=== PATIENT | male | born 1965 | race Caucasian/White ===

== ENCOUNTER 2019-05-11 11:12 | Outpatient (CLI) | payer BC, SELFPAY ==
--- NOTE | ~2019-05-11 | XR_ITS ---
XR shoulder RT min 2V 05/11/2019 11:40 INDICATION: Right shoulder pain for 4-6 months PROCEDURE: 4 views right shoulder COMPARISON: No prior studies for comparison. FINDINGS: Fracture, dislocation or subluxation is not identified. The soft tissues appear within norm al limits. No foreign bodies are identified. IMPRESSION: 1: NO ACUTE BONE OR JOINT ABNORMALITY IDENTIFIED. Reviewed, dictated and finalized at location A. [employer] DIRECT[employer]
== END 2019-05-11 11:13 | disposition home or self-care (01) ==
LOC: ANHIMG 11:21
PROVIDERS: PCP Physician Assistant; Visit Provider Physician Assistant
DX: M75.41 Impingement syndrome of right shoulder (principal)
CPT/HCPCS: 73030

== ENCOUNTER 2021-11-23 09:37 | Emergency (ER) | payer BC, SELFPAY ==
--- NOTE | ~2021-11-23 | XR_ITS ---
EXAMINATION: XR wrist RT min 3V DATE: 11/23/2021 09:55 INDICATION: Right wrist pain TECHNIQUE: Posteroanterior, ulnar deviation, oblique, and lateral views of the right wrist were obtai saad. COMPARISON: none FINDINGS: Alignment is normal. No acute fracture. Osteoarthritis, mild to moderate severity at the first carpom etacarpal joint and mild at the triscaphe joint. No erosions to suggest inflammatory arthritis. 8 x 5 mm ossific density without evident donor site possibly degenerative loose body or heterotopic ossifi cation projecting palmar to the lunate on the lateral projection. Soft tissues are unremarkable. IMPRESSION: 1. Small likely degenerative loose body versus heterotopic ossification projecting palmar to the geneva te. No evident donor site to suggest that this represents a fracture fragment. 2. 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 Reviewed, dictated and finalized at location A. IMPRESSION: 1. Small likely degenerative loose body versus heterotopic ossification project ing palmar to the lunate. No evident donor site to suggest that this represents a fracture fragment. 2. 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
[2021-11-23 09:45] VITALS: BP 131/88; PULSE 69; RESP 16; TEMP 36.6; O2SAT 98
--- NOTE | 2021-11-23 10:12 | ED.EXTPRO ---
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 Patient reports decreased inclinometer tester to his right hand and pain along the thumb and radial aspect of right wrist. Patient has no noted swelling to the right wrist denies any tingling or numbness to his right hand or fingers, strong right radial pulse.Patient has taken Ibuprofen and Aleve for his symptoms. MD Complaint: other (right wrist pain) Onset (ago): day(s) (3) Location: right and other (wrist) Severity scale (1-10): 6 Quality: aching and other (increases with movement and use) Related Data Allergies Allergy/AdvReac Type Severity Reaction Status Date / Time No Known Allergies Allergy Unverified 05/09/19 15:07 Review of Systems Review of Systems: CONSTITUTIONAL: Denies fever, chills, or sweats. EYES: Denies visual changes, redness, or discharge. ENT: Denies rhinorrhea, congestion, sore throat, or otalgia. CARDIOVASCULAR: Denies chest pain, palpitations, or edema. RESPIRATORY: Denies cough or dyspnea. GASTROINTESTINAL: Denies abdominal pain, nausea, vomiting, or diarrhea. GENITOURINARY: Denies dysuria or hematuria. SKIN: Denies rash or itching. MUSCULOSKELETAL: Denies back pain,positive for right wrist pain, or myalgia. NEUROLOGIC: Denies headache, numbness, or weakness. PSYCHIATRIC: Denies anxiety or depression. All systems reviewed & are unremarkable except as noted in HPI and below PMFSH Past Medical History Medical History (Updated 11/25/21 @ 11:26 by Willa Santiago NP) Encounter for medical examination to establish care Erectile dysfunction Mixed hyperlipidemia Rotator cuff impingement syndrome of right shoulder Seasonal allergies Tobacco abuse Surgical History Surgical History (Updated 11/25/21 @ 09:09 by Willa Santiago NP) No history of previous surgery Family History Family History Mother Diabetes mellitus Father Parkinsons Social History Social History Smoking packs per day: 0.33 Smoking cigarettes per day: 6.6 Years smoked: 15 Smoking pack-years: 4.95 Smoking status: Current every day smoker Tobacco type: cigarettes Alcohol intake: never Substance use: never Comments At time of signature, agree with nursing past medical, surgical, social and family history. There is no relevant family history pertinent to the presenting complaint Exam Narrative: GENERAL: Well-appearing, well-nourished, and in no acute distress. HEAD: Normocephalic, atraumatic. EYES: PERRLA and EOMI. ENT: Nares clear, no rhinorrhea or epistaxis. Mucous membranes moist.TM's normal with good light reflex, throat pink with no lesions or exudates or tonsil swellig NECK: Supple.no lymphadenopathy CHEST: Clear to auscultation. No respiratory distress. SAO2 98% on room air, no tachypnea HEART: Regular rate and rhythm. No murmur heard. Normal peripheral pulses. ABDOMEN: Soft, nontender, nondistended, normal active bowel sounds. EXTREMITIES: Normal range of motion. No edema.Pain along right radial aspect of right wrist with pain increases with use of thumb, decreased inclinometer tester, increased pain with use, Patient denies any tingling or numbness to his hand or fingers, no swelling present to wrist or fingers, fingers have brisk capillary refill,warm and pink with strong right radial pulse SKIN: Warm, dry, no rash.
== END 2021-11-23 11:11 | disposition home or self-care (01) ==
PROVIDERS: Emergency Provider Registered Nurse
DX: M25.531 Pain in right wrist (principal); M18.9 Osteoarthritis of first carpometacarpal joint, unspecified; F17.210 Nicotine dependence, cigarettes, uncomplicated; E78.2 Mixed hyperlipidemia
CPT/HCPCS: 73110; 99213; G0463

== ENCOUNTER 2022-04-15 13:03 | Emergency (ER) | payer BC, SELFPAY ==
[2022-04-15 13:18] VITALS: BP 109/79; PULSE 110; RESP 16; TEMP 38; O2SAT 98
--- NOTE | 2022-04-15 13:34 | ED.URI ---
HPI - URI/Sore Throat General Chief Complaint: Upper Respiratory Infection Stated Complaint: powers/sore throat Time Seen by Provider: 04/15/22 13:30 Source: patient, RN notes reviewed and old records reviewed Mode of arrival: ambulatory Limitations: no limitations History of Present Illness HPI Narrative: 56 year old male who presents to [facility] care with complaints of diffuse body aches, sweating, fevers, some sore throat and sinus drainage since last night. Patient states that he feels like he has been hit by a truck. Patient reports dry cough denies any shortness of breath. Patient states no nausea vomiting or diarrhea. Patient states that he has had COVID vaccination with Booster but has not had flu shot. MD elicited complaint: cough, sore throat and other (headache and myalgia) Onset (ago): day(s) (last night) Severity: moderate Pain scale (0-10): 6 Able to tolerate fluids by mouth: Yes Treatments prior to arrival: acetaminophen and ibuprofen Related Data Allergies Allergy/AdvReac Type Severity Reaction Status Date / Time No Known Allergies Allergy Verified 04/15/22 13:09 Review of Systems Review of Systems: CONSTITUTIONAL:Reports malaise, chills, sweats, or fever. EYES: Denies visual changes, redness, or discharge. ENT: Reports rhinorrhea, congestion, sinus pain, no otalgia and sore throat. CARDIOVASCULAR: Denies chest pain, palpitations, or edema. RESPIRATORY: Reports cough.? Denies dyspnea. GASTROINTESTINAL: Denies abdominal pain, nausea, vomiting, diarrhea SKIN: Denies rash or itching. MUSCULOSKELETAL:reports myalgia. NEUROLOGIC: reports headache. All systems reviewed & are unremarkable except as noted in HPI and below PMFSH Past Medical History Medical History (Updated 04/15/22 @ 13:53 by Willa aSntiago NP) Encounter for medical examination to establish care Erectile dysfunction Mixed hyperlipidemia Rotator cuff impingement syndrome of right shoulder Seasonal allergies Tobacco abuse Surgical History Surgical History (Updated 11/25/21 @ 09:09 by Willa Santiago NP) No history of previous surgery Family History Family History Mother Diabetes mellitus Father Parkinsons Social History Social History Smoking packs per day: 0.33 Smoking cigarettes per day: 6.6 Years smoked: 15 Smoking pack-years: 4.95 Smoking status: Current every day smoker Tobacco type: cigarettes Alcohol intake: never Substance use: never Comments At time of signature, agree with nursing past medical, surgical, social and family history. There is no relevant family history pertinent to the presenting complaint Exam Narrative: GENERAL: Well-appearing, well-nourished, and in no acute distress. HEAD: Normocephalic EYES: PERRLA, conjunctivae clear ENT: Nares clear, turbinates edematous and erythematous, clear discharge. Mucous membranes moist. TM pearly benjamin with dull light reflex bilaterally; no tragal tenderness. Oropharynx erythematous without lesions. Tonsils not enlarged and without exudate, no drooling, no hoarseness, no trismus, uvula midline. NECK: Supple. No lymphadenopathy CHEST: Clear to auscultation, breath sounds equal. No wheezing, rhonchi, rales, or stridor. No respiratory distress, speaks in full sentences.cough, SAO2 98% on room air HEART: Regular rate and rhythm. No murmur heard. SKIN: Warm, dry, no rash. NEURO: Alert and oriented x3. PSYCH: Normal mood and affect Course Course Emergency Course: Patient is aware of diagnosis, understands and agrees to treatment plan.? Anticipatory guidance given.? Patient agrees to follow-up as directed and is aware of reasons to seek care at the emergency department. Portions of this record may have been created with voice recognition software Level of Care: Express Care Visit Vital Signs Vital signs: Vital
== END 2022-04-15 14:01 | disposition home or self-care (01) ==
PROVIDERS: Emergency Provider Registered Nurse
DX: U07.1 COVID-19 (principal); E78.2 Mixed hyperlipidemia
CPT/HCPCS: 87426; 87804; 99213; C9803; G0463

== ENCOUNTER 2023-04-17 13:21 | Outpatient (CLI) | payer BC, SELFPAY ==
[2023-04-17 14:20] LABS: Influenza A QL RT-PCR Negative (Negative); Influenza B QL RT-PCR Negative (Negative); RSV RNA, RT-PCR Negative (Negative); SARS-CoV-2 RNA PCR Negative (Negative)
== END 2023-04-17 13:22 | disposition home or self-care (01) ==
LOC: ANHLAB 13:23
PROVIDERS: PCP Nurse Practitioner Family; Visit Provider Nurse Practitioner Family
DX: R68.89 Other general symptoms and signs (principal); Z20.822 Contact with and (suspected) exposure to COVID-19
CPT/HCPCS: 87637